=== PATIENT | male | born 1935 | race Caucasian/White ===

== ENCOUNTER 2022-02-12 12:19 | Outpatient (CLI) | payer MEDICARE ==
[2022-02-13 00:49] LABS: SARS-CoV-2 PCR by NAA Not Detected (NotDetected)
== END 2022-02-12 12:20 | disposition home or self-care (01) ==
LOC: CSHLAB 12:19
PROVIDERS: ATTEND Internal Medicine Gastroenterology
DX: Z20.822 Contact with and (suspected) exposure to COVID-19 (principal); R11.2 Nausea with vomiting, unspecified
CPT/HCPCS: U0003; U0005

== ENCOUNTER 2022-02-15 10:31 | Day surgery (SDC) | payer MEDICARE ==
[2022-02-14 09:14] VITALS: BMI 28.7
[~2022-02-15 10:31] MED LIST: Lidocaine 2% MPF 10 ML AMP (For Epidural Use) ONE; PROPOFOL 20 ML ONE; Phenylephrine 10 MG/ML VIAL ONE
[2022-02-15] MEDS ORDERED: Lidocaine 1% MPF 2 ML VIAL ONE (11:43)
== END 2022-02-15 13:27 | disposition home or self-care (01) ==
LOC: CSHSDC 10:31
PROVIDERS: ATTEND Internal Medicine Gastroenterology
PROC: 0DJ08ZZ Inspection of Upper Intestinal Tract, Via Natural or Artificial Opening Endoscopic (ICD-10-PCS; principal; 2022-02-15)
DX: R10.9 Unspecified abdominal pain (principal); R63.4 Abnormal weight loss; R63.0 Anorexia; K44.9 Diaphragmatic hernia without obstruction or gangrene; K31.7 Polyp of stomach and duodenum; I10 Essential (primary) hypertension; E78.5 Hyperlipidemia, unspecified; N40.0 Benign prostatic hyperplasia without lower urinary tract symptoms; G40.909 Epilepsy, unspecified, not intractable, without status epilepticus; F41.9 Anxiety disorder, unspecified; F32.A Depression, unspecified
CPT/HCPCS: J2370; J2704

== ENCOUNTER 2023-11-21 13:13 | Outpatient (CLI) | payer OTHER ==
[~2023-11-21 13:13] MED LIST changes: +Iopamidol 300 61% 100 ML VIAL FS ONE; -Lidocaine 2% MPF 10 ML AMP (For Epidural Use) ONE; -PROPOFOL 20 ML ONE; -Phenylephrine 10 MG/ML VIAL ONE
== END 2023-11-21 13:14 | disposition home or self-care (01) ==
LOC: CSHCT 13:13
PROVIDERS: ATTEND Otolaryngology
DX: R22.1 Localized swelling, mass and lump, neck (principal); M79.5 Residual foreign body in soft tissue; D17.0 Benign lipomatous neoplasm of skin and subcutaneous tissue of head, face and neck; M95.2 Other acquired deformity of head
CPT/HCPCS: 70460; 70491; 82565; Q9967